=== PATIENT | female | born 1930 | race Caucasian/White ===

== ENCOUNTER 2017-11-06 07:33 | Inpatient (IN) | payer MEDICARE, BC ==
[~2017-11-06] VITALS: Ht 170.2 cm; Wt 70.5 kg
[~2017-11-06 07:33] MED LIST: FISH12002 PO; FLUO20CA39 PO; LOSA1TAB9 PO; MULT-1179 PO
[2017-11-06 08:39] LABS: BASOPHILS % (AUTO) 0.1 % (0-1); EOSINOPHILS % (AUTO) 0 % (0-6); HEMATOCRIT 51.3 % (35.0-45.0); HEMOGLOBIN 17.4 g/dl (12.0-16.0); LYMPHOCYTES # (AUTO) 1.1 X10'3 (1.1-4.8); LYMPHOCYTES % (AUTO) 7.7 % (21-51); MEAN CORPUSCULAR HEMOGLOBIN 32.2 PG (27.0-31.0); MEAN CORPUSCULAR VOLUME 94.7 FL (78-98); MEAN PLATELET VOLUME 7.9 FL (7.4-10.4); MONOCYTES # (AUTO) 0.7 X10'3 (0-0.9); MONOCYTES % (AUTO) 4.5 % (2-12); NEUTROPHILS # (AUTO) 12.8 X10'3 (1.8-7.7); NEUTROPHILS % (AUTO) 87.7 % (42-75); PLATELET COUNT 295 X10'3 (140-440); RED BLOOD COUNT 5.42 X10'6 (4.20-5.60); RED CELL DISTRIBUTION WIDTH 12.7 % (11.5-14.5); WHITE BLOOD COUNT 14.6 X10'3 (4.5-11.0)
[2017-11-06 08:55] LABS: CLARITY,URINE SLIGHTLY CLOUDY (Clear); COLOR,URINE YELLOW (Yellow); GLUCOSE, URINE >=1000 mg/dl (Neg); KETONES,URINE 15 mg/dl (Neg); LEUKOCYTE ESTERASE ,URINE NEGATIVE (Neg); NITRITES, URINE NEGATIVE (Neg); OCCULT BLOOD,URINE LARGE (Neg); PROTEIN,URINE >=300 mg/dl (Neg); UROBILINOGEN,URINE 0.2 E.U/dL (0.2-1.0)
[2017-11-06 08:59] LABS: ALBUMIN 4.1 G/DL (3.4-5.0); ANION GAP 20 (8-16); BILIRUBIN,TOTAL 0.7 MG/DL (0.1-1.0); BLOOD UREA NITROGEN 17 MG/DL (7-18); BUN/CREATININE RATIO 14.3 (6.6-38.0); CALCIUM 9.1 MG/DL (8.5-10.1); CHLORIDE 97 MMOL/L (99-107); CKMB RELATIVE INDEX 2.1 RATIO (0-2.5); CREATINE KINASE 159 U/L (26-192); CREATININE 1.19 MG/DL (0.40-0.90); GLUCOSE 259 MG/DL (70-104); MAGNESIUM 1.7 MG/DL (1.5-2.4); POTASSIUM 3.6 MMOL/L (3.5-5.1); SODIUM 141 MMOL/L (135-145); TOTAL CARBON DIOXIDE 23.8 MMOL/L (24-32); TOTAL PROTEIN 8.3 G/DL (6.4-8.2); eGFR 43 ML/MIN
[2017-11-06 08:59] LABS: UA COLLECTION TYPE FOLEY CATH
[2017-11-06 09:00] LABS: ALANINE AMINOTRANSFERASE 30 U/L (12-78); ALKALINE PHOSPHATASE 77 IU/L (46-116); ASPARTATE AMINO TRANSFERASE 25 U/L (10-37)
[2017-11-06 09:06] LABS: BACTERIA,URINE NONE SEEN /HPF (Neg); MUCUS STRANDS MODERATE /LPF (Neg); RENAL CELLS, URINE FEW /HPF; SQUAMOUS EPITHELIAL CELL,UR FEW /LPF (FEW); WBC,URINE 0-4 /HPF (0-4)
[2017-11-06 09:07] LABS: HYALINE CASTS 0-3 /LPF (NEGATIVE)
[2017-11-06] MEDS ORDERED: METO-467 PO (09:37)
[2017-11-06] MEDS ORDERED: acetaminophen 325mg tablet PO PRN ×2 (09:50)
[2017-11-06] MEDS ORDERED: magnesium hydroxide 30ml (MOM) UD suspension PO PRN (09:50)
[2017-11-06] MEDS ORDERED: mag hydrox/Alum hydrox/simeth 30ml oral suspension PO PRN (09:50)
[2017-11-06] MEDS ORDERED: meclizine 12.5mg tablet PO ONE (09:50)
[2017-11-06] MEDS ORDERED: HYDROcodone/acetaminophen 10/325mg tab PO PRN (09:50)
[2017-11-06] MEDS ORDERED: ondansetron 4mg rapidly disintigrating tab PO ONE (09:50)
[2017-11-06] MEDS ORDERED: ondansetron/PF 4mg/2ml inj IV PRN (09:50)
[2017-11-06 10:07] LABS: HEMOGLOBIN A1C 5.6 % (4.5-6.2)
[2017-11-06] MEDS: aspirin 81mg tablet.DR PO SCH (10:44)
[2017-11-06] MEDS: normal saline 1000ml 1,000 ML IV SCH (10:44)
[2017-11-06] MEDS: enoxaparin 40mg/0.4ml syringe SUBCUT SCH (10:44)
[2017-11-06] MEDS: OMEGA-3/DHA/EPA/FISH OIL 1 EACH CAPSULE.DR PO SCH (11:28)
[2017-11-06 18:00] VITALS: BP 131/80
[2017-11-06] MEDS ORDERED: metoprolol tartrate 50mg tablet PO SCH (20:00)
[2017-11-06] MEDS ORDERED: temazepam 15mg capsule PO PRN (21:00)
[2017-11-06 22:00] VITALS: BP 124/69
[2017-11-07] MEDS: normal saline 1000ml 1,000 ML IV SCH ×3 (01:29→15:20)
[2017-11-07 05:00] VITALS: BP 108/60
[2017-11-07 05:25] LABS: BASOPHILS % (AUTO) 0.2 % (0-1); EOSINOPHILS # (AUTO) 0.3 X10'3 (0-0.9); EOSINOPHILS % (AUTO) 1.6 % (0-6); HEMATOCRIT 42.7 % (35.0-45.0); HEMOGLOBIN 14.9 g/dl (12.0-16.0); LYMPHOCYTES # (AUTO) 1.7 X10'3 (1.1-4.8); LYMPHOCYTES % (AUTO) 10.6 % (21-51); MEAN CORPUSCULAR HGB CONC 34.9 % (33.0-36.5); MEAN CORPUSCULAR VOLUME 94.4 FL (78-98); MEAN PLATELET VOLUME 7.7 FL (7.4-10.4); MONOCYTES # (AUTO) 1.6 X10'3 (0-0.9); MONOCYTES % (AUTO) 9.9 % (2-12); NEUTROPHILS # (AUTO) 12.8 X10'3 (1.8-7.7); NEUTROPHILS % (AUTO) 77.7 % (42-75); PLATELET COUNT 259 X10'3 (140-440); RED BLOOD COUNT 4.53 X10'6 (4.20-5.60); RED CELL DISTRIBUTION WIDTH 13.7 % (11.5-14.5); WHITE BLOOD COUNT 16.5 X10'3 (4.5-11.0)
[2017-11-07 05:40] LABS: ALBUMIN 3.3 G/DL (3.4-5.0); ANION GAP 11 (8-16); BLOOD UREA NITROGEN 39 MG/DL (7-18); BUN/CREATININE RATIO 28.1 (6.6-38.0); CALCIUM 8.5 MG/DL (8.5-10.1); CHLORIDE 102 MMOL/L (99-107); CHOLESTEROL 208 MG/DL (0-200); CREATININE 1.39 MG/DL (0.40-0.90); GLUCOSE 122 MG/DL (70-104); HDL CHOLESTEROL 42 MG/DL (35-60); LDL CHOLESTEROL 138 MG/DL (50-100); POTASSIUM 4.2 MMOL/L (3.5-5.1); SODIUM 140 MMOL/L (135-145); TOTAL CARBON DIOXIDE 27.4 MMOL/L (24-32); TRIGLYCERIDES 162 MG/DL (20-135); eGFR 36 ML/MIN
[2017-11-07] MEDS: HYDROcodone/acetaminophen 5mg/325mg tablet PO PRN ×2 (07:14→18:27)
[2017-11-07] MEDS: aspirin 81mg tablet.DR PO SCH (07:14)
[2017-11-07] MEDS: multivitamins, therapeutics tablet PO SCH (07:51)
[2017-11-07] MEDS: OMEGA-3/DHA/EPA/FISH OIL 1 EACH CAPSULE.DR PO SCH (07:51)
[2017-11-07] MEDS: FLUoxetine 20mg capsule PO SCH (07:52)
[2017-11-07] MEDS: enoxaparin 40mg/0.4ml syringe SUBCUT SCH (07:52)
[2017-11-07 08:00] VITALS: BP_SYST 135; BP_SYST 148; BP_SYST 150; BP_DIAS 66; BP_DIAS 74; BP_DIAS 78
[2017-11-07] MEDS: atorvastatin 20mg tablet PO SCH (16:28)
[2017-11-07] MEDS: metoprolol tartrate 50mg tablet PO SCH (19:29)
[2017-11-07 22:12] VITALS: BP 127/85
[2017-11-08] VITALS (9 sets, daily range): BP systolic 119–155; BP diastolic 67–99
[2017-11-08 06:19] LABS: ALBUMIN 2.8 G/DL (3.4-5.0); ANION GAP 9 (8-16); BLOOD UREA NITROGEN 24 MG/DL (7-18); BUN/CREATININE RATIO 28.2 (6.6-38.0); CHLORIDE 107 MMOL/L (99-107); CREATININE 0.85 MG/DL (0.40-0.90); GLUCOSE 133 MG/DL (70-104); POTASSIUM 3.6 MMOL/L (3.5-5.1); SODIUM 140 MMOL/L (135-145); TOTAL CARBON DIOXIDE 23.7 MMOL/L (24-32); eGFR 63 ML/MIN
[2017-11-08 06:42] LABS: BASOPHILS % (AUTO) 0.1 % (0-1); EOSINOPHILS % (AUTO) 0.1 % (0-6); HEMATOCRIT 38.1 % (35.0-45.0); HEMOGLOBIN 13.4 g/dl (12.0-16.0); LYMPHOCYTES # (AUTO) 1.4 X10'3 (1.1-4.8); LYMPHOCYTES % (AUTO) 12.3 % (21-51); MEAN CORPUSCULAR HGB CONC 35.2 % (33.0-36.5); MEAN CORPUSCULAR VOLUME 93.7 FL (78-98); MEAN PLATELET VOLUME 8.4 FL (7.4-10.4); MONOCYTES # (AUTO) 1.5 X10'3 (0-0.9); MONOCYTES % (AUTO) 13.5 % (2-12); NEUTROPHILS # (AUTO) 8.5 X10'3 (1.8-7.7); PLATELET COUNT 221 X10'3 (140-440); RED BLOOD COUNT 4.06 X10'6 (4.20-5.60); RED CELL DISTRIBUTION WIDTH 12.7 % (11.5-14.5); WHITE BLOOD COUNT 11.4 X10'3 (4.5-11.0)
[2017-11-08] MEDS: metoprolol tartrate 50mg tablet PO SCH ×2 (07:53→20:11)
[2017-11-08] MEDS: aspirin 81mg tablet.DR PO SCH (07:53)
[2017-11-08] MEDS: OMEGA-3/DHA/EPA/FISH OIL 1 EACH CAPSULE.DR PO SCH (07:53)
[2017-11-08] MEDS: atorvastatin 20mg tablet PO SCH (07:53)
[2017-11-08] MEDS: multivitamins, therapeutics tablet PO SCH (07:54)
[2017-11-08] MEDS: FLUoxetine 20mg capsule PO SCH (07:54)
[2017-11-08] MEDS: enoxaparin 40mg/0.4ml syringe SUBCUT SCH (07:55)
[2017-11-08] MEDS: HYDROcodone/acetaminophen 5mg/325mg tablet PO PRN (07:56)
[2017-11-08] MEDS: normal saline 1000ml 1,000 ML IV SCH ×3 (10:26→20:11)
[2017-11-08] MEDS: levoFLOXACIN-Levaquin 750MG/D5 150 ML IV SCH (20:11)
[2017-11-08] MEDS ORDERED: digoxin 250mcg (0.25mg) tablet PO ONE (23:30)
[2017-11-09] VITALS (10 sets, daily range): BP systolic 128–198; BP diastolic 70–119
[2017-11-09] MEDS ORDERED: enoxaparin 40mg/0.4ml syringe SUBCUT ONE (00:05)
[2017-11-09] MEDS ORDERED: enoxaparin 30mg/0.3ml syringe SUBCUT ONE (00:05)
[2017-11-09 05:45] LABS: ALBUMIN 2.7 G/DL (3.4-5.0); ANION GAP 10 (8-16); BLOOD UREA NITROGEN 16 MG/DL (7-18); BUN/CREATININE RATIO 26.2 (6.6-38.0); CALCIUM 8.1 MG/DL (8.5-10.1); CHLORIDE 106 MMOL/L (99-107); CREATININE 0.61 MG/DL (0.40-0.90); GLUCOSE 108 MG/DL (70-104); POTASSIUM 3.9 MMOL/L (3.5-5.1); SODIUM 140 MMOL/L (135-145); TOTAL CARBON DIOXIDE 24.2 MMOL/L (24-32); eGFR > 90 ML/MIN
[2017-11-09 05:55] LABS: BASOPHILS % (AUTO) 0.3 % (0-1); EOSINOPHILS # (AUTO) 0.2 X10'3 (0-0.9); EOSINOPHILS % (AUTO) 1.8 % (0-6); HEMATOCRIT 37.3 % (35.0-45.0); HEMOGLOBIN 12.9 g/dl (12.0-16.0); LYMPHOCYTES # (AUTO) 1.5 X10'3 (1.1-4.8); LYMPHOCYTES % (AUTO) 14.6 % (21-51); MEAN CORPUSCULAR HEMOGLOBIN 32.5 PG (27.0-31.0); MEAN CORPUSCULAR HGB CONC 34.5 % (33.0-36.5); MEAN CORPUSCULAR VOLUME 94.2 FL (78-98); MEAN PLATELET VOLUME 7.9 FL (7.4-10.4); MONOCYTES # (AUTO) 1.2 X10'3 (0-0.9); MONOCYTES % (AUTO) 11.6 % (2-12); NEUTROPHILS # (AUTO) 7.4 X10'3 (1.8-7.7); NEUTROPHILS % (AUTO) 71.7 % (42-75); PLATELET COUNT 189 X10'3 (140-440); RED BLOOD COUNT 3.96 X10'6 (4.20-5.60); RED CELL DISTRIBUTION WIDTH 13.2 % (11.5-14.5); WHITE BLOOD COUNT 10.4 X10'3 (4.5-11.0)
[2017-11-09] MEDS ORDERED: enoxaparin 80mg/0.8ml syringe SUBCUT SCH (08:00)
[2017-11-09] MEDS: atorvastatin 20mg tablet PO SCH (08:53)
[2017-11-09] MEDS: multivitamins, therapeutics tablet PO SCH (08:53)
[2017-11-09] MEDS: levoFLOXACIN-Levaquin 750MG/D5 150 ML IV SCH (08:53)
[2017-11-09] MEDS: metoprolol tartrate 50mg tablet PO SCH ×2 (08:54→20:00)
[2017-11-09] MEDS: FLUoxetine 20mg capsule PO SCH (08:54)
[2017-11-09] MEDS: aspirin 81mg tablet.DR PO SCH (08:55)
[2017-11-09] MEDS: OMEGA-3/DHA/EPA/FISH OIL 1 EACH CAPSULE.DR PO SCH (08:56)
[2017-11-09] MEDS ORDERED: amLODIPine 5mg tablet PO SCH (09:25)
[2017-11-09] MEDS ORDERED: normal saline 500ml IV soln 1,000 ML IV ONE (13:00)
[2017-11-09] MEDS: normal saline 1000ml 1,000 ML IV SCH ×2 (13:05→22:06)
[2017-11-09] MEDS: digoxin 250mcg/ml 2ml ampule IV SCH ×2 (14:00→22:01)
[2017-11-09] MEDS: HYDROcodone/acetaminophen 5mg/325mg tablet PO PRN (16:19)
[2017-11-09] MEDS ORDERED: cloNIDine 0.1 mg tablet PO STA (17:19)
[2017-11-09] MEDS ORDERED: amLODIPine 5mg tablet PO STA (17:19)
[2017-11-09] MEDS: lisinopril 20mg tablet PO SCH ×2 (18:45→19:05)
[2017-11-09] MEDS ORDERED: hydrALAZINE 20mg/ml inj. IV PRN (18:45)
[2017-11-09] MEDS: lactobacillus rhamnosus 10,000 MMU CELLS/CAPSULE PO SCH (20:00)
[2017-11-09] MEDS ORDERED: digoxin 250mcg/ml 2ml ampule IV ONE (21:55)
[2017-11-10 02:00] VITALS: BP 173/90
[2017-11-10 06:00] VITALS: BP 181/91
[2017-11-10 06:30] VITALS: BP 172/86
[2017-11-10 06:46] LABS: BASOPHILS % (AUTO) 0.1 % (0-1); EOSINOPHILS # (AUTO) 0.1 X10'3 (0-0.9); EOSINOPHILS % (AUTO) 1.5 % (0-6); HEMATOCRIT 38.3 % (35.0-45.0); HEMOGLOBIN 13.3 g/dl (12.0-16.0); LYMPHOCYTES # (AUTO) 1.1 X10'3 (1.1-4.8); LYMPHOCYTES % (AUTO) 11.2 % (21-51); MEAN CORPUSCULAR HEMOGLOBIN 32.6 PG (27.0-31.0); MEAN CORPUSCULAR HGB CONC 34.8 % (33.0-36.5); MEAN CORPUSCULAR VOLUME 93.5 FL (78-98); MEAN PLATELET VOLUME 7.9 FL (7.4-10.4); MONOCYTES # (AUTO) 1.2 X10'3 (0-0.9); MONOCYTES % (AUTO) 12.6 % (2-12); NEUTROPHILS # (AUTO) 7.1 X10'3 (1.8-7.7); NEUTROPHILS % (AUTO) 74.6 % (42-75); PLATELET COUNT 211 X10'3 (140-440); RED BLOOD COUNT 4.09 X10'6 (4.20-5.60); RED CELL DISTRIBUTION WIDTH 12.7 % (11.5-14.5); WHITE BLOOD COUNT 9.6 X10'3 (4.5-11.0)
[2017-11-10 06:54] LABS: ALBUMIN 2.7 G/DL (3.4-5.0); ANION GAP 8 (8-16); BLOOD UREA NITROGEN 9 MG/DL (7-18); BUN/CREATININE RATIO 14.5 (6.6-38.0); CALCIUM 8.4 MG/DL (8.5-10.1); CHLORIDE 101 MMOL/L (99-107); CREATININE 0.62 MG/DL (0.40-0.90); GLUCOSE 146 MG/DL (70-104); POTASSIUM 3.5 MMOL/L (3.5-5.1); SODIUM 137 MMOL/L (135-145); TOTAL CARBON DIOXIDE 27.8 MMOL/L (24-32); eGFR > 90 ML/MIN
[2017-11-10] MEDS: lactobacillus rhamnosus 10,000 MMU CELLS/CAPSULE PO SCH ×2 (08:59→19:30)
[2017-11-10] MEDS: atorvastatin 20mg tablet PO SCH (08:59)
[2017-11-10] MEDS: aspirin 81mg tablet.DR PO SCH (08:59)
[2017-11-10] MEDS: OMEGA-3/DHA/EPA/FISH OIL 1 EACH CAPSULE.DR PO SCH (08:59)
[2017-11-10] MEDS: metoprolol tartrate 50mg tablet PO SCH ×2 (08:59→19:30)
[2017-11-10] MEDS: amLODIPine 5mg tablet PO SCH (09:00)
[2017-11-10] MEDS: multivitamins, therapeutics tablet PO SCH (09:00)
[2017-11-10] MEDS: lisinopril 20mg tablet PO SCH (09:00)
[2017-11-10] MEDS: FLUoxetine 20mg capsule PO SCH (09:04)
[2017-11-10] MEDS: levoFLOXACIN-Levaquin 750MG/D5 150 ML IV SCH (09:05)
[2017-11-10] MEDS: digoxin 125mcg (0.125mg) tablet PO SCH (09:05)
[2017-11-10 09:41] VITALS: BP 136/78
[2017-11-10] MEDS ORDERED: normal saline 1000ml 1,000 ML IV ONE (11:40)
[2017-11-10] MEDS: normal saline 1000ml 1,000 ML IV SCH (15:21)
[2017-11-10 18:00] VITALS: BP 172/94
[2017-11-10 22:00] VITALS: BP 155/61
[2017-11-11] MEDS: HYDROcodone/acetaminophen 5mg/325mg tablet PO PRN ×2 (01:22→22:17)
[2017-11-11] MEDS: normal saline 1000ml 1,000 ML IV SCH ×2 (02:58→16:23)
[2017-11-11 05:00] VITALS: BP 179/92
[2017-11-11 06:15] LABS: BASOPHILS % (AUTO) 0.3 % (0-1); EOSINOPHILS # (AUTO) 0.1 X10'3 (0-0.9); EOSINOPHILS % (AUTO) 1.3 % (0-6); HEMATOCRIT 40.4 % (35.0-45.0); HEMOGLOBIN 13.9 g/dl (12.0-16.0); LYMPHOCYTES # (AUTO) 1.7 X10'3 (1.1-4.8); LYMPHOCYTES % (AUTO) 16.7 % (21-51); MEAN CORPUSCULAR HEMOGLOBIN 32.5 PG (27.0-31.0); MEAN CORPUSCULAR HGB CONC 34.3 % (33.0-36.5); MEAN CORPUSCULAR VOLUME 94.7 FL (78-98); MEAN PLATELET VOLUME 7.9 FL (7.4-10.4); MONOCYTES # (AUTO) 1.4 X10'3 (0-0.9); MONOCYTES % (AUTO) 13.5 % (2-12); NEUTROPHILS % (AUTO) 68.2 % (42-75); PLATELET COUNT 259 X10'3 (140-440); RED BLOOD COUNT 4.27 X10'6 (4.20-5.60); RED CELL DISTRIBUTION WIDTH 12.8 % (11.5-14.5); WHITE BLOOD COUNT 10.3 X10'3 (4.5-11.0)
[2017-11-11 06:32] LABS: ALBUMIN 2.7 G/DL (3.4-5.0); ANION GAP 10 (8-16); BLOOD UREA NITROGEN 10 MG/DL (7-18); BUN/CREATININE RATIO 19.6 (6.6-38.0); CALCIUM 8.2 MG/DL (8.5-10.1); CHLORIDE 101 MMOL/L (99-107); CREATININE 0.51 MG/DL (0.40-0.90); GLUCOSE 103 MG/DL (70-104); SODIUM 137 MMOL/L (135-145); TOTAL CARBON DIOXIDE 26.5 MMOL/L (24-32); eGFR > 90 ML/MIN
[2017-11-11 06:57] LABS: POTASSIUM 2.9 MMOL/L (3.5-5.1)
[2017-11-11] MEDS: amLODIPine 5mg tablet PO SCH (08:00)
[2017-11-11] MEDS: lisinopril 20mg tablet PO SCH (08:00)
[2017-11-11] MEDS: metoprolol tartrate 50mg tablet PO SCH ×2 (08:00→20:23)
[2017-11-11] MEDS ORDERED: potassium Cl 20 mEq SR tablet PO PRN ×2 (08:05)
[2017-11-11] MEDS ORDERED: potassium Cl 40MEQ/NS 500ml 500 ML IV PRN ×2 (08:05)
[2017-11-11] MEDS ORDERED: magnesium Cl slow-release 64mg tablet PO PRN (08:25)
[2017-11-11] MEDS ORDERED: magnesium 2GM in 50ml NS 50 ML IV PRN (08:25)
[2017-11-11] MEDS ORDERED: magnesium 4gm in 100ml NS 100 ML IV PRN (08:25)
[2017-11-11] MEDS: lactobacillus rhamnosus 10,000 MMU CELLS/CAPSULE PO SCH ×2 (08:42→20:00)
[2017-11-11] MEDS: OMEGA-3/DHA/EPA/FISH OIL 1 EACH CAPSULE.DR PO SCH (08:43)
[2017-11-11] MEDS: aspirin 81mg tablet.DR PO SCH (08:43)
[2017-11-11] MEDS: atorvastatin 20mg tablet PO SCH (08:43)
[2017-11-11] MEDS: digoxin 125mcg (0.125mg) tablet PO SCH (08:43)
[2017-11-11] MEDS: multivitamins, therapeutics tablet PO SCH (08:44)
[2017-11-11] MEDS: FLUoxetine 20mg capsule PO SCH (08:44)
[2017-11-11 10:00] VITALS: BP 158/71
[2017-11-11] MEDS: levoFLOXACIN 750MG TABLET PO SCH (11:00)
[2017-11-11 22:53] VITALS: BP 190/98
[2017-11-12] MEDS: normal saline 1000ml 1,000 ML IV SCH (05:06)
[2017-11-12 06:52] VITALS: BP 201/116
[2017-11-12] MEDS: OMEGA-3/DHA/EPA/FISH OIL 1 EACH CAPSULE.DR PO SCH (07:00)
[2017-11-12] MEDS: lactobacillus rhamnosus 10,000 MMU CELLS/CAPSULE PO SCH (07:00)
[2017-11-12] MEDS: multivitamins, therapeutics tablet PO SCH (07:01)
[2017-11-12] MEDS: FLUoxetine 20mg capsule PO SCH (07:01)
[2017-11-12] MEDS: metoprolol tartrate 50mg tablet PO SCH (07:03)
[2017-11-12] MEDS: digoxin 125mcg (0.125mg) tablet PO SCH (07:03)
[2017-11-12] MEDS: lisinopril 20mg tablet PO SCH (07:04)
[2017-11-12] MEDS: amLODIPine 5mg tablet PO SCH (07:04)
[2017-11-12] MEDS: levoFLOXACIN 750MG TABLET PO SCH (12:09)
[2017-11-12] MEDS ORDERED: LORazepam 2 mg/ml vial IV PRN (18:55)
[2017-11-12] MEDS ORDERED: morphine 4 MG/ML inj SYRINge IV PRN (18:55)
[2017-11-13 06:30] VITALS: BP 152/90
[2017-11-13] MEDS: Protein Shake (high protein) 240ml (8oz) cup PO SCH ×2 (08:00→20:05)
[2017-11-13] MEDS: HYDROmorphone inj. 0.5 MG/0.5 ML DISP.SYRIN IV PRN (09:01)
[2017-11-14] MEDS: Protein Shake (high protein) 240ml (8oz) cup PO SCH ×2 (08:45→13:48)
[2017-11-14] MEDS: HYDROmorphone inj. 0.5 MG/0.5 ML DISP.SYRIN IV PRN (11:58)
[2017-11-15] MEDS: HYDROmorphone inj. 0.5 MG/0.5 ML DISP.SYRIN IV PRN (04:47)
== END 2017-11-15 15:15 | disposition hospice, home (50) | DRG 64 ==
LOC: ER 07:33 → ED HOLD 09:50 → EDBEDREQ 12:40 → ORTHO 4S 13:26
PROVIDERS: ADMIT Hospitalist; ATTEND Family Medicine
DX: I63.9 Cerebral infarction, unspecified (principal); G93.6 Cerebral edema; N17.9 Acute kidney failure, unspecified; E86.0 Dehydration; I48.91 Unspecified atrial fibrillation; D72.829 Elevated white blood cell count, unspecified; F32.9 Major depressive disorder, single episode, unspecified; G89.29 Other chronic pain; B95.2 Enterococcus as the cause of diseases classified elsewhere; N39.0 Urinary tract infection, site not specified; I10 Essential (primary) hypertension; I95.1 Orthostatic hypotension; M19.90 Unspecified osteoarthritis, unspecified site; R73.9 Hyperglycemia, unspecified; Z51.5 Encounter for palliative care; Z66 Do not resuscitate; Z79.82 Long term (current) use of aspirin; Z79.899 Other long term (current) drug therapy; Z87.891 Personal history of nicotine dependence
CPT/HCPCS: 36415; 70450; 70544; 70551; 71045; 80048; 80053; 80061; 80162; 81001; 82550; 82553; 82948; 83036; 83735; 84439; 84443; 84484; 85025; 87070; 87077; 87088; 87186; 93005; 93306; 93880; 97110; 97116; 97161; 97530; 99285; A4315; A6212; A6213; J0360; J1160; J1170; J1650; J1956; J2405; J7030; J8597